=== PATIENT | male | born 1985 | race Caucasian/White ===

== ENCOUNTER 2017-11-30 05:51 | Day surgery (SDC) | payer BC ==
[2017-11-30] MEDS ORDERED: ceFAZolin SODIUM 1 GM VIAL ONE (06:39)
[2017-11-30] MEDS ORDERED: LACTATED RINGERS 1,000 ML ONE (06:39)
[2017-11-30] MEDS ORDERED: SODIUM CHL 0.9% 100ML MINI-BAG 100 ML IVPB ONE (06:41)
[2017-11-30] MEDS ORDERED: ePHEDrine SULF 50 MG/ML ONE (07:00)
[2017-11-30] MEDS ORDERED: DEXAMETHASONE INJ 10 MG/ML VIAL ONE (07:00)
[2017-11-30] MEDS ORDERED: KETOROLAC TROMETHAMINE INJ 30 MG/ML VIAL ONE (07:00)
[2017-11-30] MEDS ORDERED: LIDOCAINE 1% 10 ML VIAL INJ ONE (07:00)
[2017-11-30] MEDS ORDERED: raNITIdine HCL INJ 25 MG/ML VIAL ONE (07:00)
[2017-11-30] MEDS ORDERED: PROPOFOL 200 MG/20 ML VIAL IV ONE (07:00)
[2017-11-30] MEDS ORDERED: BUPIVACAINE 0.25% W/EPI 50 ML VIAL INJ ONE (07:29)
[2017-11-30] MEDS ORDERED: HEPARIN SODIUM (PORCINE) 10,000 UNITS/ML VIAL ONE (07:29)
[2017-11-30] MEDS ORDERED: LACTATED RINGERS 1,000 ML BAG IV ONE (08:30)
[2017-11-30] MEDS ORDERED: ROCURONIUM BROMIDE 10 MG/ML VIAL ONE (10:52)
[2017-11-30] MEDS ORDERED: fentaNYL CITRATE INJ 50 MCG/ML AMP ONE (10:52)
[2017-11-30] MEDS ORDERED: MIDAZOLAM INJ 2 MG/2 ML VIAL ONE (10:52)
[2017-11-30] MEDS ORDERED: ELECTROLYTE-A 1,000 ML IVS ONE (12:00)
[2017-11-30] MEDS ORDERED: SUGAMMADEX SODIUM 200 MG/2 ML VIAL IV ONE (12:15)
[2017-11-30] MEDS ORDERED: LACTATED RINGERS 1,000 ML IVS ONE (12:31)
[2017-11-30] MEDS ORDERED: HYDROmorphone HCL INJ 2 MG/ML VIAL ONE (12:33)
[2017-11-30] MEDS ORDERED: HYDROmorphone HCL INJ 2 MG/ML VIAL IV ONE ×3 (12:34→12:54)
[2017-11-30] MEDS ORDERED: ONDANSETRON INJ 4 MG/2 ML VIAL ONE (12:36)
[2017-11-30] MEDS ORDERED: ONDANSETRON INJ 4 MG/2 ML VIAL IV ONE (12:37)
--- NOTE | 2017-11-30 13:23 | OP ---
DATE OF PROCEDURE: 11/30/17 PREOPERATIVE DIAGNOSIS: 1. Symptomatic cholelithiasis. POSTOPERATIVE DIAGNOSIS: 1. Symptomatic cholelithiasis. 2. Chronic cholecystitis. PROCEDURE: 1. Laparoscopic cholecystectomy with intraoperative cholangiography using fluoroscopy. SURGEON: Luis Angel Cooper MD. CRYSTALLOGRAPHER: None. ANESTHESIA: Local infiltration of 0.25% Marcaine with epinephrine and general endotracheal anesthesia. INDICATION: The patient is a 32-year-old male who has had right upper quadrant colicky pain after fatty meals associated with nausea. There is no history of hepatitis or jaundice. He has ultrasound identified cholelithiasis. The patient was brought to the Surgical Suite today for cholecystectomy after the risks, benefits and alternatives to the procedure were discussed and accepted. FINDINGS: There were adhesions to the neck and body of the gallbladder from the omentum. These were quite loose. Intraoperative cholangiography revealed a small duct with free flow into the duodenum and no filling defects or strictures noted. There was a stone within the gallbladder. No other pathology is identified. DESCRIPTION OF PROCEDURE: After adequate general endotracheal anesthesia was obtained, the patient was prepped and draped in the usual sterile manner. Surgical time-out was taken. The infraumbilical area was infiltrated with local anesthesia. A curvilinear incision was fashioned and carried down through the subcutaneous tissue to the midline fascia. Traction sutures were placed on either side of the midline. A small incision was made in the midline fascia and the peritoneum was opened bluntly. Jed trocar was introduced under direct vision into the abdominal cavity and fixed in place with the 20 mL balloon. CO2 was then insufflated until a pressure of 12 mmHg was reached and the abdomen was tympanitic in all four quadrants. When this was done, the laparoscope was introduced. The abdomen was inspected with the previously noted findings. The patient was then placed in reverse Trendelenburg position, turned to the left side. The upper abdominal ports were placed under direct vision. The gallbladder was grasped, retracted anteriorly and laterally. The adhesions to the gallbladder were then taken down using electrocautery and blunt dissection. The neck of the gallbladder was retracted laterally. The triangle of Calot was then explored with the cystic duct and cystic artery identified and isolated. The cystic duct was hemoclipped once proximally. The cystic artery was hemoclipped twice proximally and once distally. A small incision was made in the cystic duct. The cholangiogram catheter was introduced through a separate stab wound in the right upper quadrant, introduced into the cystic duct and clipped in place. Cholangiograms were then taken using fluoroscopy which revealed free flow into the duodenum with no filling defects or strictures noted. The cystic duct was hemoclipped three times distally. The cystic duct catheter was removed. The cystic duct was divided. The cystic artery was divided. The gallbladder was then dissected free from the gallbladder bed of the liver using electrocautery without followup difficulty. There was a small amount of bile leak which was aspirated. The gallbladder was removed from the infraumbilical port site in the usual manner under direct vision. When this was done, the subhepatic space, subphrenic space and the right pericolic gutter were all irrigated with saline. The effluent was noted to be clear. The gallbladder bed of the liver was inspected and there were two tiny places of oozing which were controlled easily with electrocautery. The digna hepatis was inspected and no bleeding or bile leak was identified. The upper abdominal ports were removed under direct vision. There was some oozing from the middle port site which was controlled easily with electrocautery. At this point, good hemostasis was noted. At this point, the CO2, the laparoscope and the infraumbilical port were removed. The infraumbilical port site fascia was approximated with a single [id number] suture of 0 Vicryl. Subcutaneous tissue was irrigated with saline. Skin edges were approximated with 4-0 Vicryl subcuticular sutures, benzoin and Steri-Strips. Sterile dressings were applied. The patient was awakened and taken to the Recovery Room in good and stable condition. Estimated blood loss was less than 50 mL. All sponge, needle and instrument counts were correct. #[id number] [facility]
[2017-11-30] MEDS ORDERED: HYDROcodone 5MG/APAP 325MG 1 EA TAB ONE (13:44)
[2017-11-30] MEDS ORDERED: HYDROcodone 5MG/APAP 325MG 1 EA TAB PO ONE (13:50)
[2017-11-30 13:52] VITALS: TEMP 98.4
[2017-11-30 14:38] VITALS: BP 132/68; O2SAT 98
== END 2017-11-30 14:49 | disposition home or self-care (01) ==
LOC: AMB 05:51
PROVIDERS: ATTEND Surgery
DX: K80.10 Calculus of gallbladder with chronic cholecystitis without obstruction (principal); K82.8 Other specified diseases of gallbladder; K21.9 Gastro-esophageal reflux disease without esophagitis; I10 Essential (primary) hypertension; F17.210 Nicotine dependence, cigarettes, uncomplicated; Z88.0 Allergy status to penicillin; Z88.8 Allergy status to other drugs, medicaments and biological substances; Z91.040 Latex allergy status; Z79.899 Other long term (current) drug therapy
CPT/HCPCS: 00790; 47563; 76000; J0690; J1100; J1170; J1644; J1885; J2250; J2405; J2780; J3010; J3490; J7050; J7120